=== PATIENT | male | born 1940 | race Native Hawaiian/Other Pacific Islander ===

== ENCOUNTER 2016-02-16 08:59 | Outpatient (CLI) | payer OTHER ==
[~2016-02-16 08:59] MED LIST: CLOPIDOGREL75 MG PO; DIGOX125 MCG PO; ELIQUIS2.5 MG OR; FURO40TA93 PO; METO50TA63 PO; PERCOCET1 TA1 PO; TEMA30CA18 PO
== END 2016-02-16 09:59 | disposition home or self-care (01) ==
LOC: CT 08:59
DX: M79.604 Pain in right leg (principal)
CPT/HCPCS: 36415; 82565; 84520; Q9963

== ENCOUNTER 2016-03-09 08:25 | Outpatient (CLI) | payer OTHER ==
[2016-03-09 08:44] LABS: PLATELET COUNT 87 K/uL (142-355)
== END 2016-03-09 19:08 | disposition home or self-care (01) ==
LOC: LABW 08:25
PROVIDERS: Internal Medicine Medical Oncology
DX: D72.819 Decreased white blood cell count, unspecified (principal); D69.6 Thrombocytopenia, unspecified
CPT/HCPCS: 36415; 85027

== ENCOUNTER 2016-08-02 08:17 | Outpatient (CLI) | payer OTHER ==
[2016-08-02 08:36] LABS: PLATELET COUNT 97 K/uL (142-355)
[2016-08-02 09:07] LABS: POTASSIUM 3.9 mmol/L (3.6-5.2)
== END 2016-08-02 19:59 | disposition home or self-care (01) ==
LOC: LABW 08:17
PROVIDERS: Internal Medicine
DX: I10 Essential (primary) hypertension (principal)
CPT/HCPCS: 36415; 80053; 80061; 81000; 84439; 84443; 85027

== ENCOUNTER 2016-09-19 10:05 | Outpatient (CLI) | payer OTHER | END 2016-09-19 11:05 | disposition home or self-care (01) | LOC: LABW 10:05 | DX: Z79.899 Other long term (current) drug therapy (principal); Z51.81 Encounter for therapeutic drug level monitoring | CPT/HCPCS: 36415; 80162 ==

== ENCOUNTER 2017-01-14 14:17 | Outpatient (CLI) | payer OTHER ==
[2017-01-14 14:36] LABS: PLATELET COUNT 89 K/uL (142-355)
== END 2017-01-14 15:20 | disposition home or self-care (01) ==
LOC: LAB 14:17
PROVIDERS: Physician Assistant
DX: I10 Essential (primary) hypertension (principal); D61.818 Other pancytopenia; R35.1 Nocturia; Z79.899 Other long term (current) drug therapy; Z51.81 Encounter for therapeutic drug level monitoring
CPT/HCPCS: 80053; 80061; 83036; 84153; 84439; 84443; 85027

== ENCOUNTER 2017-10-24 13:17 | Outpatient (CLI) | payer OTHER ==
[2017-10-24 14:36] LABS: POTASSIUM 4.3 mmol/L (3.6-5.2)
[2017-10-24 14:37] LABS: PLATELET COUNT 99 K/uL (142-355)
== END 2017-10-24 19:49 | disposition home or self-care (01) ==
LOC: LAB 13:17
PROVIDERS: Internal Medicine
DX: I10 Essential (primary) hypertension (principal); D61.818 Other pancytopenia; Z79.899 Other long term (current) drug therapy
CPT/HCPCS: 80053; 80061; 80162; 81000; 84439; 84443; 85027

== ENCOUNTER 2018-05-13 08:38 | Outpatient (CLI) | payer OTHER ==
[2018-05-13 08:59] LABS: PLATELET COUNT 86 K/uL (142-355)
[2018-05-13 09:10] LABS: POTASSIUM 4.1 mmol/L (3.6-5.2)
== END 2018-05-13 21:04 | disposition home or self-care (01) ==
LOC: LABW 08:38
PROVIDERS: Internal Medicine Cardiovascular Disease
DX: Z79.899 Other long term (current) drug therapy (principal)
CPT/HCPCS: 36415; 80053; 80061; 85027

== ENCOUNTER 2018-09-15 09:34 | Outpatient (CLI) | payer OTHER ==
[2018-09-15 10:28] LABS: PLATELET COUNT 99 K/uL (142-355)
[2018-09-15 10:53] LABS: POTASSIUM 4.1 mmol/L (3.6-5.2)
== END 2018-09-15 23:19 | disposition home or self-care (01) ==
LOC: LABW 09:34
PROVIDERS: Internal Medicine
DX: I10 Essential (primary) hypertension (principal); Z79.01 Long term (current) use of anticoagulants; F51.01 Primary insomnia; Z79.899 Other long term (current) drug therapy
CPT/HCPCS: 36415; 80053; 80061; 80162; 81000; 84439; 84443; 85027

== ENCOUNTER 2018-12-30 10:28 | Outpatient (CLI) | payer OTHER | END 2018-12-30 22:29 | disposition home or self-care (01) | LOC: LAB 10:28 | PROVIDERS: Physician Assistant | DX: N18.3 Chronic kidney disease, stage 3 (moderate) (principal) | CPT/HCPCS: 80053 ==

== ENCOUNTER 2020-08-03 13:07 | Outpatient (CLI) | payer OTHER ==
[2020-08-14 10:17] LABS: POTASSIUM 4.2 mmol/L (3.6-5.2)
== END 2020-08-03 19:00 ==
LOC: LABW 13:07
PROVIDERS: ATTEND Internal Medicine Cardiovascular Disease
DX: Z79.899 Other long term (current) drug therapy (principal)
CPT/HCPCS: 36415; 80048

== ENCOUNTER 2021-08-24 01:56 | Emergency (ER) | payer OTHER ==
[~2021-08-24] VITALS: Ht 182.9 cm; Wt 91.6 kg
[2021-08-24 02:54] LABS: PLATELET COUNT 83 K/uL (142-355)
[2021-08-24 05:32] VITALS: BP 139/54; TEMP 98.1
[2021-08-25] MEDS ORDERED: HYDROCODONE BIT1 TA1 PO (17:22)
[2021-08-25] MEDS ORDERED: TRANEXAMIC ACI650 MG BU (17:28)
== END 2021-08-24 05:36 | disposition short-term general hospital (02) ==
LOC: ED 01:56
PROVIDERS: Emergency Medicine Emergency Medical Services
PROC: 30233N1 Transfusion of Nonautologous Red Blood Cells into Peripheral Vein, Percutaneous Approach (ICD-10-PCS; principal; 2021-08-24)
DX: K91.841 Postprocedural hemorrhage of a digestive system organ or structure following other procedure (principal); D64.89 Other specified anemias; X58.XXXA Exposure to other specified factors, initial encounter; W01.0XXA Fall on same level from slipping, tripping and stumbling without subsequent striking against object, initial encounter; Y83.8 Other surgical procedures as the cause of abnormal reaction of the patient, or of later complication, without mention of misadventure at the time of the procedure; Y92.89 Other specified places as the place of occurrence of the external cause
CPT/HCPCS: 36415; 36430; 80048; 85027; 85610; 86850; 86900; 86901; 86922; 96365; 99285; P9016

== ENCOUNTER 2021-08-24 21:18 | Inpatient (IN) | payer OTHER ==
[~2021-08-24] VITALS: Ht 182.9 cm; Wt 89.5 kg
[2021-08-24 21:18] VITALS: BP 91/56; TEMP 97.7
[2021-08-24 21:46] VITALS: BP 91/56; TEMP 98.6
[2021-08-24 22:27] LABS: PLATELET COUNT 107 K/uL (142-355)
[2021-08-24 22:35] LABS: POTASSIUM 4.2 mmol/L (3.6-5.2)
[2021-08-24 22:37] LABS: PARTIAL THROMBOPLASTIN TIME 24.1 SECONDS (24.5-33.6)
[2021-08-24 23:30] VITALS: BP 163/62; TEMP 98.6
[2021-08-25] VITALS (13 sets, daily range): BP systolic 130–162; BP diastolic 55–69; TEMP 97.3–98.9; Ht 182.9 cm; Wt 89.5 kg
[2021-08-25 11:27] LABS: PLATELET COUNT 75 K/uL (142-355)
[2021-08-25 11:51] LABS: POTASSIUM 3.8 mmol/L (3.6-5.2)
[2021-08-25] MEDS ORDERED: HYDROCODONE BIT1 TA1 PO (17:22)
[2021-08-25] MEDS ORDERED: TRANEXAMIC ACI650 MG BU (17:28)
[2021-08-26] VITALS (15 sets, daily range): BP systolic 110–146; BP diastolic 39–60; TEMP 97.3–98.5
[2021-08-26 17:22] LABS: PLATELET COUNT 60 K/uL (142-355)
[2021-08-26 17:31] LABS: POTASSIUM 3.8 mmol/L (3.6-5.2)
[2021-08-27] VITALS (10 sets, daily range): BP systolic 132–172; BP diastolic 50–65; TEMP 97.7–98.6
[2021-08-27 01:48] LABS: POTASSIUM 3.8 mmol/L (3.6-5.2)
[2021-08-27 07:57] LABS: PLATELET COUNT 61 K/uL (142-355)
[2021-08-28] VITALS (8 sets, daily range): BP systolic 123–158; BP diastolic 55–82; TEMP 98–98.6
[2021-08-28 08:12] LABS: PLATELET COUNT 60 K/uL (142-355)
[2021-08-28 08:21] LABS: POTASSIUM 3.9 mmol/L (3.6-5.2)
== END 2021-08-28 16:42 | disposition short-term general hospital (02) | DRG 812 ==
LOC: ED 21:18 → MED/SURG 08-25 00:02
PROVIDERS: ADMIT Emergency Medicine; ATTEND Internal Medicine
PROC: 30233N1 Transfusion of Nonautologous Red Blood Cells into Peripheral Vein, Percutaneous Approach (ICD-10-PCS; principal; 2021-08-24)
PROC: 30233N1 Transfusion of Nonautologous Red Blood Cells into Peripheral Vein, Percutaneous Approach (ICD-10-PCS; 2021-08-25)
PROC: 30233N1 Transfusion of Nonautologous Red Blood Cells into Peripheral Vein, Percutaneous Approach (ICD-10-PCS; 2021-08-26)
PROC: 30233N1 Transfusion of Nonautologous Red Blood Cells into Peripheral Vein, Percutaneous Approach (ICD-10-PCS; 2021-08-27)
PROC: 30233N1 Transfusion of Nonautologous Red Blood Cells into Peripheral Vein, Percutaneous Approach (ICD-10-PCS; 2021-08-28)
DX: D62 Acute posthemorrhagic anemia (principal); I48.91 Unspecified atrial fibrillation; I25.10 Atherosclerotic heart disease of native coronary artery without angina pectoris; Z86.711 Personal history of pulmonary embolism; Z86.718 Personal history of other venous thrombosis and embolism; M10.9 Gout, unspecified; Z85.47 Personal history of malignant neoplasm of testis
CPT/HCPCS: 36415; 80048; 80053; 84484; 84550; 85014; 85018; 85027; 85610; 85730; 86850; 86900; 86901; 86922; 87635; 93005; 96360; 99284; J1940; J2405; P9016; U0003

== ENCOUNTER 2021-10-13 07:56 | Outpatient (CLI) | payer OTHER ==
[~2021-10-13 07:56] MED LIST changes: +HYDROCODONE BIT1 TA1 PO; +TRANEXAMIC ACI650 MG BU
[2021-10-13 08:14] LABS: PLATELET COUNT 110 K/uL (142-355)
[2021-10-13 09:11] LABS: POTASSIUM 3.8 mmol/L (3.6-5.2)
== END 2021-10-13 21:46 | disposition home or self-care (01) ==
LOC: LAB 07:56
PROVIDERS: ATTEND Internal Medicine
DX: I25.10 Atherosclerotic heart disease of native coronary artery without angina pectoris (principal); E03.8 Other specified hypothyroidism; M10.9 Gout, unspecified; I10 Essential (primary) hypertension
CPT/HCPCS: 80053; 80061; 81002; 84439; 84443; 84550; 85027

== ENCOUNTER 2021-10-31 12:41 | Outpatient (CLI) | payer OTHER ==
[2021-10-31 13:48] LABS: PLATELET COUNT 101 K/uL (142-355)
== END 2021-10-31 20:23 | disposition home or self-care (01) ==
LOC: LAB 12:41
PROVIDERS: ATTEND Internal Medicine
DX: D64.89 Other specified anemias (principal)
CPT/HCPCS: 36415; 85027; 85044

== ENCOUNTER 2021-11-13 13:45 | Outpatient (CLI) | payer OTHER ==
[2021-11-13 14:10] LABS: PLATELET COUNT 90 K/uL (142-355)
== END 2021-11-13 19:30 | disposition home or self-care (01) ==
LOC: LAB 13:45
PROVIDERS: ATTEND Internal Medicine
DX: D50.0 Iron deficiency anemia secondary to blood loss (chronic) (principal)
CPT/HCPCS: 85027

== ENCOUNTER 2021-12-25 15:03 | Outpatient (CLI) | payer OTHER ==
[2021-12-25 15:20] LABS: PLATELET COUNT 107 K/uL (142-355)
[2021-12-25 15:44] LABS: POTASSIUM 3.7 mmol/L (3.6-5.2)
== END 2021-12-25 20:04 | disposition home or self-care (01) ==
LOC: LAB 15:03
PROVIDERS: ATTEND Internal Medicine
DX: D64.9 Anemia, unspecified (principal); E53.8 Deficiency of other specified B group vitamins
CPT/HCPCS: 80053; 82607; 82728; 82746; 83540; 83550; 85027